=== PATIENT | female | born 1935 | race Hispanic/Latino ===

== ENCOUNTER → 2018-01-25 | Outpatient (CLI) | payer MEDICARE, BC ==
[~2018-01-25] MED LIST: CALCIUM PO; METOPROLOL SUCC25 MG PO; NEXIUM40 MG PO; PREDNISONE1 MG PO; VITAMIN B12 PO; VITAMIN D PO
--- NOTE | 2018-01-25 13:46 | Diagnostic Imaging Report ---
PROCEDURE:SHOULDER COMPLETE BILATERAL INDICATION:Bilateral shoulder pain COMPARISON:None. FINDINGS: Right: Generalized osteopenia. No acute displaced fracture or dislocation. No lytic or blastic lesions. Glenohumeral joint is grossly unremarkable. Degenerative changes in the acromioclavicular joint. The visualized portions of the right lung are clear. Soft tissues are unremarkable. Left: Generalized osteopenia. No acute displaced fracture or dislocation. No lytic or blastic lesions. Glenohumeral joint is grossly unremarkable. Degenerative changes in the acromioclavicular joint. The visualized portions of the left lung are clear. Soft tissues are unremarkable. CONCLUSION: 1. Generalized osteopenia, which limits evaluation of the bony structures. No acute bony abnormalities. MRI shoulder is recommended if there is continued pain and clinical concern for ligamentous or labral injury. William Rios M.D. Dictated by: William Rios M.D. on 01/25/2018 at 13:50 Electronically approved by: William Rios M.D. on 01/25/2018 at 13:50
== END ==
LOC: RAD 10:55
PROVIDERS: ATTEND Internal Medicine
DX: M25.512 Pain in left shoulder (principal); M25.511 Pain in right shoulder

== ENCOUNTER → 2018-10-09 | Outpatient (CLI) | payer MEDICARE, BC | LOC: RAD 13:38 | PROVIDERS: ATTEND Internal Medicine | DX: R55 Syncope and collapse (principal) | CPT/HCPCS: 93306; 93880 ==

== ENCOUNTER → 2020-04-09 | Outpatient (CLI) | payer MEDICARE, BC ==
--- NOTE | 2020-04-09 12:28 | Diagnostic Imaging Report ---
Lumbar spine series, 5 views. History: Back pain. Comparison: None available. Discussion: The alignment of the lumbar spine is normal. The bones are diffusely osteopenic. Cement augmentation is noted at L4. Moderate to severe anterior wedge compression deformities are present extending from T10 through L3, most severe at T12. Diffuse posterior facet sclerosis is present. Atherosclerotic calcification of the abdominal aorta is present. Surgical clips are present in the right upper quadrant. IMPRESSION: Diffuse osteopenia with multilevel compression deformities of lower thoracic and lumbar vertebral bodies, age indeterminate. Signed by: Jesus Melendez on 04/09/2020 12:24 PM
== END ==
LOC: RAD 10:55
PROVIDERS: ATTEND Internal Medicine
DX: M54.5 Low back pain (principal)
CPT/HCPCS: 72110